=== PATIENT | female | born 2000 | race Caucasian/White ===

== ENCOUNTER 2022-11-13 08:51 | Emergency (ER) | payer SELFPAY ==
[2022-11-13 09:03] VITALS: BP 140/79; PULSE 108; RESP 16; TEMP 37; O2SAT 97
--- NOTE | 2022-11-13 09:03 | ED.NAVMDI ---
HPI - Nausea/Vomiting/Diarrhea General Chief complaint: Nausea/Vomiting/Diarrhea Stated complaint: Vomiting/Chills/Diarrhea Time Seen by Provider: 11/13/22 09:03 Source: patient Mode of arrival: ambulatory Limitations: no limitations History of Present Illness HPI Narrative: Fadumo is a 22-year-old female patient presenting to the clinic today with complaints of vomiting, nausea, chills, and diarrhea x1 day. Reports that she has had 4 diarrhea stools and has vomited 5 times. Denies any known fever but has had chills. States she is not currently nauseous but was nauseous on the car ride here. She denies any known exposure to COVID, flu, or strep. Related Data Home Medications Medication Instructions Recorded Confirmed albuterol sulfate 90 mcg/actuation 2 puff inhalation Q4-5H PRN sob 11/13/22 11/13/22 aerosol inhaler Allergies Allergy/AdvReac Type Severity Reaction Status Date / Time No Known Allergies Allergy Verified 11/13/22 09:18 Review of Systems Review of Systems: Pertinent positives per HPI. Patient denies any fever, chills, rash, headache, visual changes, dizziness, cough, runny nose, sore throat, shortness of breath, chest pain, palpitations, constipation, abdominal pain, or any urinary issues. PMFSH Comments At the time of my signature, I reviewed and agree with the nursing past medical, surgical, social, and family history. There is no relevant family history pertinent to the patient complaint. Exam Narrative: General: Well-developed, obese, in no apparent distress Head: Normocephalic, atraumatic Eyes: Pupils equally round and reactive to light bilaterally, EOM intact, sclera and conjunctive clear, no discharge, lids normal Ears: TMs intact and clear, ear canals clear, no drainage, grossly hearing normal. Nose: Nares patent, clear nasal discharge, no inflammation, no sinus tenderness. Mouth: Oropharynx red without lesions or masses, good dentition, MMM. Neck: Supple, trachea midline, no enlargement of anterior or posterior cervical nodes, no thyroid masses or goiter palpable. Cardio: Regular rate and rhythm, s1 and s2 normal, no murmur appreciated. Resp: Clear to auscultation bilaterally anteriorly and posteriorly, no rhonchi, rales, wheezing or rubs Abdomen: Soft, pliable, bowel sounds present in all quadrants, non-tender to palpation, no organomegly, no CVAT tenderness. Course Course Emergency Course: Portions of this record may have been created with voice recognition software. Level of Care: Express Care Visit Vital Signs Vital signs: Vital Signs Temperature 37.0 C 11/13/22 09:03 Pulse Rate 108 H 11/13/22 09:03 Respiratory Rate 16 11/13/22 09:03 Blood Pressure 140/79 11/13/22 09:03 Pulse Oximetry 97 11/13/22 09:03 Oxygen Delivery Room Air 11/13/22 09:03 Temperature 37.0 C 11/13/22 09:03 Pulse Rate 108 H 11/13/22 09:03 Respiratory Rate 16 11/13/22 09:03 Blood Pressure 140/79 11/13/22 09:03 Pulse Oximetry 97 11/13/22 09:03 Oxygen Delivery Room Air 11/13/22 09:03 Vital signs reviewed MDM - Nausea/Vomiting/Diarrhea MDM Narrative Medical decision making narrative: At the time of visit patient is resting comfortably on the exam table. Strep, influenza, and COVID testing were performed in the clinic today. Strep and COVID testing were negative. Influenza was positive for influenza A. Prescription for Zofran and albuterol inhaler was sent to the pharmacy. Supportive measures were discussed with the patient she voiced understanding discharge instructions and agrees to treatment plan. Differential Diagnosis Differential diagnosis: Likely gastroenteritis and other (COVID, strep, influenza) Lab Data Labs: Influenza A Screen Positive Reference Range: Negative Influenza B Screen Negative Reference Range: Negative Strep
== END 2022-11-13 09:34 | disposition home or self-care (01) ==
PROVIDERS: Emergency Provider Nurse Practitioner Family
DX: J10.1 Influenza due to other identified influenza virus with other respiratory manifestations (principal); K52.9 Noninfective gastroenteritis and colitis, unspecified; Z20.822 Contact with and (suspected) exposure to COVID-19
CPT/HCPCS: 87081; 87426; 87804; 87880; 99203; C9803; G0463